=== PATIENT | male | born 1970 | race Caucasian/White ===

== ENCOUNTER 2020-01-13 17:11 | Inpatient (IN) | payer BC ==
[~2020-01-13] VITALS: Ht 175.3 cm; Wt 69.5 kg
[2020-01-13] MEDS ORDERED: SODIUM CHLORIDE FLUSH 10ML SYR IVF ONE (17:30)
--- NOTE | 2020-01-13 17:43 | NUR ---
DR GILMORE SPOKE WITH DR JOSUE
[2020-01-13 17:44] LABS: BASOPHILS # (AUTO) 0.03 x10^3/uL (0-0.1); BASOPHILS % (AUTO) 0 % (0-1); EOSINOPHILS % (AUTO) 0 % (1-7); LYMPHOCYTES # (AUTO) 1.05 x10^3/uL (1-3.4); LYMPHOCYTES % (AUTO) 9 % (22-44); MD NO; MEAN CORPUSCULAR HEMOGLOBIN 30.2 pg (27.5-34.5); MEAN CORPUSCULAR HGB CONC 33.6 g/dL (33.2-36.2); MEAN CORPUSCULAR VOLUME 89.7 fL (81-97); MEAN PLATELET VOLUME 8.6 fL (7.4-10.4); MONOCYTES % (AUTO) 3 % (2-9); NEUTROPHILS # (AUTO) 10.42 x10^3/uL (1.8-6.8); NEUTROPHILS % (AUTO) 88 % (42-75); PLATELET COUNT 220 x10^3/uL (130-400); RED CELL DISTRIBUTION WIDTH 13.3 % (9.4-14.8)
[2020-01-13 17:52] LABS: INTERNATIONAL NORMALIZED RATIO 1.01 (0.93-1.1); PROTHROMBIN TIME 10.7 Seconds (9.6-11.5)
[2020-01-13 17:54] LABS: ALANINE AMINOTRANSFERASE 33 U/L (12-78); ANION GAP 7 mmol/L (5-15); CALCIUM 8.9 mg/dL (8.5-10.1); CHLORIDE 110 mmol/L (98-107); CREATININE 1.04 mg/dL (0.7-1.3)
[2020-01-13 17:56] LABS: ALKALINE PHOSPHATASE 58 U/L (45-117); BILIRUBIN,TOTAL 0.4 mg/dL (0.2-1.0)
--- NOTE | 2020-01-13 17:57 | NUR ---
PT TO CT
[2020-01-13] MEDS ORDERED: OMNIPAQUE 350 MG/ML, 100ML BOTTLE ONE (18:11)
--- NOTE | 2020-01-13 18:29 | NUR ---
AT BEDSIDE TO DISCUSS POC WITH PATIENT
[2020-01-13] MEDS ORDERED: SODIUM CHLORIDE FLUSH 10ML SYR IVF PRN (19:00)
[2020-01-13] MEDS ORDERED: hydrALAzine 20 MG/ML, 1ML IVPush PRN (19:30)
--- NOTE | 2020-01-13 19:54 | NUR ---
RESTING ON GURNEY, A & O X4, IN NO ACUTE DISTRESS, VSS.
--- NOTE | 2020-01-13 20:05 | NUR ---
REPORT GIVEN TO SHIRLENE POLANCO.
[2020-01-13] MEDS ORDERED: ACETAMINOPHEN 325 MG TABLET ONE (20:10)
[2020-01-13] MEDS: ACETAMINOPHEN 325 MG TABLET PO PRN (20:11)
[2020-01-13 20:58] VITALS: BP 132/85
[2020-01-14] MEDS: ACETAMINOPHEN 325 MG TABLET PO PRN ×5 (01:59→23:27)
[2020-01-14 04:41] LABS: BASOPHILS # (AUTO) 0.02 x10^3/uL (0-0.1); BASOPHILS % (AUTO) 0 % (0-1); EOSINOPHILS # (AUTO) 0.01 x10^3/uL (0-0.4); EOSINOPHILS % (AUTO) 0 % (1-7); LYMPHOCYTES # (AUTO) 0.97 x10^3/uL (1-3.4); LYMPHOCYTES % (AUTO) 10 % (22-44); MD NO; MEAN CORPUSCULAR HEMOGLOBIN 30.4 pg (27.5-34.5); MEAN CORPUSCULAR HGB CONC 33.9 g/dL (33.2-36.2); MEAN CORPUSCULAR VOLUME 89.8 fL (81-97); MEAN PLATELET VOLUME 8.8 fL (7.4-10.4); MONOCYTES # (AUTO) 0.41 x10^3/uL (0.2-0.8); MONOCYTES % (AUTO) 4 % (2-9); NEUTROPHILS # (AUTO) 8.26 x10^3/uL (1.8-6.8); NEUTROPHILS % (AUTO) 85 % (42-75); PLATELET COUNT 212 x10^3/uL (130-400); RED BLOOD COUNT 4.91 x10^6/uL (4.38-5.82); RED CELL DISTRIBUTION WIDTH 13.8 % (9.4-14.8)
[2020-01-14 04:47] LABS: ANION GAP 4 mmol/L (5-15); CALCIUM 8.6 mg/dL (8.5-10.1); CHLORIDE 115 mmol/L (98-107)
[2020-01-14 04:58] LABS: CREATININE 0.93 mg/dL (0.7-1.3)
[2020-01-14] MEDS: LEVETIRACETAM 500 MG in SODIUM CHLORIDE 0.9% 100 ML IV SCH ×2 (07:45→17:44)
[2020-01-14] MEDS: LISINOPRIL 10 MG TABLET PO SCH ×2 (09:52→20:15)
[2020-01-15] MEDS: ONDANSETRON 2MG/ML, 2ML IVPush PRN (00:12)
[2020-01-15] MEDS: ACETAMINOPHEN 325 MG TABLET PO PRN (03:47)
[2020-01-15] MEDS ORDERED: HYDROcodone/APAP 5/325 TABLET PO ONE (05:00)
[2020-01-15] MEDS ORDERED: GADOTERATE 7.5 MMOL/15 ML SYR ONE (05:40)
[2020-01-15] MEDS: LEVETIRACETAM 500 MG in SODIUM CHLORIDE 0.9% 100 ML IV SCH ×2 (06:45→20:02)
[2020-01-15] MEDS: LISINOPRIL 10 MG TABLET PO SCH ×2 (10:02→20:02)
[2020-01-15] MEDS: HYDROcodone/APAP 5/325 TABLET PO PRN ×3 (10:03→20:02)
[2020-01-16] MEDS: HYDROcodone/APAP 5/325 TABLET PO PRN ×5 (01:14→20:46)
[2020-01-16] MEDS: ONDANSETRON 2MG/ML, 2ML IVPush PRN (01:14)
[2020-01-16 05:20] LABS: ANION GAP 6 mmol/L (5-15); CALCIUM 8.6 mg/dL (8.5-10.1); CHLORIDE 105 mmol/L (98-107)
[2020-01-16 05:21] LABS: CREATININE 0.82 mg/dL (0.7-1.3)
[2020-01-16] MEDS: LISINOPRIL 10 MG TABLET PO SCH (08:50)
[2020-01-16] MEDS: LEVETIRACETAM 500 MG in SODIUM CHLORIDE 0.9% 100 ML IV SCH ×2 (08:51→20:42)
[2020-01-16] MEDS ORDERED: PROCHLORPERAZINE 5 MG/ML, 2ML ONE (11:59)
[2020-01-16] MEDS ORDERED: PROCHLORPERAZINE 5 MG/ML, 2ML IM ONE (12:30)
[2020-01-16] MEDS: LISINOPRIL 20 MG TABLET PO SCH (20:42)
[2020-01-17] MEDS: HYDROcodone/APAP 5/325 TABLET PO PRN ×4 (00:06→17:58)
[2020-01-17] MEDS: LEVETIRACETAM 500 MG in SODIUM CHLORIDE 0.9% 100 ML IV SCH (08:20)
[2020-01-17] MEDS: AMLODIPINE 2.5 MG TABLET PO SCH (08:20)
[2020-01-17] MEDS: LISINOPRIL 20 MG TABLET PO SCH ×2 (08:20→21:05)
[2020-01-17] MEDS: ONDANSETRON 2MG/ML, 2ML IVPush PRN (19:54)
[2020-01-17 19:58] VITALS: BP 126/71
[2020-01-17] MEDS ORDERED: MORPHINE SULFATE 4 MG/ML, 1ML IVPush PRN (20:00)
[2020-01-17 21:02] VITALS: BP 119/67
[2020-01-17] MEDS: LEVETIRACETAM 500 MG TABLET PO SCH (21:04)
[2020-01-17 22:22] VITALS: BP 120/79
[2020-01-18 03:50] VITALS: BP 130/82
[2020-01-18] MEDS: ACETAMINOPHEN 325 MG TABLET PO PRN ×2 (06:02→10:20)
[2020-01-18 07:07] VITALS: BP 132/81
[2020-01-18] MEDS: HYDROcodone/APAP 5/325 TABLET PO PRN (07:38)
[2020-01-18] MEDS: LISINOPRIL 20 MG TABLET PO SCH (07:38)
[2020-01-18] MEDS: AMLODIPINE 2.5 MG TABLET PO SCH (07:38)
[2020-01-18] MEDS: LEVETIRACETAM 500 MG TABLET PO SCH (07:39)
[2020-01-18] MEDS ORDERED: LISI-170 PO (11:27)
[2020-01-18] MEDS ORDERED: LEVE500T53 PO (11:27)
[2020-01-18] MEDS ORDERED: AMLO2.5T5 PO (11:27)
[2020-01-18] MEDS ORDERED: OXYC5TAB3 PO (12:39)
[2020-01-18] MEDS ORDERED: DOCU-131 PO (12:40)
[2020-01-18 12:47] VITALS: BP 107/66
== END 2020-01-18 13:50 | disposition home or self-care (01) | DRG 65 ==
LOC: ED 17:20 → EDIP 18:44 → CCU 20:34 → 4EST 01-17 22:13
PROVIDERS: ADMIT Internal Medicine; ATTEND Family Medicine
DX: I61.5 Nontraumatic intracerebral hemorrhage, intraventricular (principal); G91.9 Hydrocephalus, unspecified; I10 Essential (primary) hypertension; R00.1 Bradycardia, unspecified
CPT/HCPCS: 36415; 70450; 70496; 70553; 80048; 80053; 83735; 84443; 85025; 85610; 85730; 87081; 93005; G0378; J1953; J2405; Q9967; A9575; J0780; J2270

== ENCOUNTER 2020-01-19 03:12 | Emergency (ER) | payer BC ==
[~2020-01-19] VITALS: Ht 175.3 cm; Wt 70.4 kg
[~2020-01-19 03:12] MED LIST: AMLO2.5T5 PO; DOCU-131 PO; LEVE500T53 PO; LISI-170 PO; OXYC5TAB3 PO
--- NOTE | 2020-01-19 03:42 | NUR ---
PATIENT PRESENTS TO THE EMERGENCY DEPARTMENT WITH C/O 04/21 FRONTAL HEADACHE, ANXIETY AND INABILITY TO SLEEP. PATIENT WAS D/C FROM [facility] ON 01/15. PT REPORTS HE WAS ADMITTED FOR A HEAD BLEED. HE DENIES ANY VISUAL DISTURBANCES, SPEECH DIFFICULTIES, OR PARESTHESIAS. FAST NEGATIVE.
[2020-01-19 03:56] LABS: BASOPHILS # (AUTO) 0.03 x10^3/uL (0-0.1); BASOPHILS % (AUTO) 0 % (0-1); EOSINOPHILS # (AUTO) 0.03 x10^3/uL (0-0.4); EOSINOPHILS % (AUTO) 0 % (1-7); LYMPHOCYTES # (AUTO) 1.27 x10^3/uL (1-3.4); LYMPHOCYTES % (AUTO) 15 % (22-44); MD NO; MEAN CORPUSCULAR HEMOGLOBIN 30.5 pg (27.5-34.5); MEAN CORPUSCULAR HGB CONC 33.5 g/dL (33.2-36.2); MEAN CORPUSCULAR VOLUME 91.1 fL (81-97); MEAN PLATELET VOLUME 8.5 fL (7.4-10.4); MONOCYTES # (AUTO) 0.81 x10^3/uL (0.2-0.8); MONOCYTES % (AUTO) 10 % (2-9); NEUTROPHILS # (AUTO) 6.38 x10^3/uL (1.8-6.8); NEUTROPHILS % (AUTO) 75 % (42-75); PLATELET COUNT 223 x10^3/uL (130-400); RED BLOOD COUNT 4.92 x10^6/uL (4.38-5.82)
[2020-01-19 04:00] LABS: ALBUMIN 3.8 g/dL (3.4-5.0); ANION GAP 8 mmol/L (5-15); CALCIUM 8.8 mg/dL (8.5-10.1); CHLORIDE 100 mmol/L (98-107); CREATININE 1.03 mg/dL (0.7-1.3)
--- NOTE | 2020-01-19 04:03 | NUR ---
PT TO AND FROM CT. AWAITING RESULTS.
--- NOTE | 2020-01-19 04:53 | NUR ---
PATIENT RESTING AND HAS NO COMPLAINTS AT THIS TIME.
[2020-01-19 05:34] VITALS: BP 119/62
== END 2020-01-19 05:37 | disposition home or self-care (01) ==
LOC: ED 03:37
DX: I61.5 Nontraumatic intracerebral hemorrhage, intraventricular (principal); G89.29 Other chronic pain; R51 Headache
CPT/HCPCS: 36415; 70450; 80048; 82040; 85025; 99284